=== PATIENT | male | born 1955 | race Caucasian/White ===

== ENCOUNTER → 2019-02-28 | Day surgery (SDC) | payer BC ==
[~2019-02-28] MED LIST: ACET325T9 PO; AMLO10TA8 PO; ATOR10TA60 PO; IV RINGERS,LACTATED 1000ML 1,000 ML IV ONE; LIDOCAINE 2% PF 5 ML VIAL. ONE; PROPOFOL 40 ML IV ONE
--- NOTE | 2019-02-28 14:27 | PDOC4 ---
PROCEDURE Procedure Colonoscopy, snare/biopsy. Indication: H/o polyps. Meds: per anesthesia Findings: ANABELLE-- normal --'Scope advanced to cecum. mucosa normal. Occasional diverticula, sigmoid. 3, 8-10mm polyps, hepatic flexure removed with cold snare. 4, 4-6mm polyps, splenic flexure, biopsied off. Internal hemorrhoids on retroflex. Varinder. well. IMP: Polyps. Diverticulosis Internal hemorrhoids. REC: Await path. Resume home meds, diet. F/u with me in 2 weeks. Pending path, repeat exam in 3-5 years. LORRI WAN MD Feb 28, 2019 14:27
[2019-02-28 14:42] VITALS: BP 132/85
--- NOTE | 2019-03-02 14:06 | PATHOLOGY ---
[facility] Accession Number: [id number] . 01 Material submitted: . PART A: hepatic flexure - HEPATIC FLEXURE POLYP PART B: splenic flexure - SPLENIC FLEXURE POLYPS . 01 Clinical history: . Hx colon polyps . 02 Diagnosis: A. Colon biopsies, hepatic flexure polyps: - Tubular adenomas. . B. Colon biopsies, splenic flexure polyps: - Tubular adenomas. - Hyperplastic polyps. (JPM:marilee; 03/02/2019) QMS 03/02/2019 0934 Local . 02 Comment: Sections of the splenic flexure biopsy reveal six segments of tubular adenoma and a slightly larger number of segments of hyperplastic polyp. There is no high grade dysplasia or evidence of malignancy. . (JPM:marilee; 03/02/2019) . 02 Electronically signed: . Lucio Mcmillan MD, Pathologist NPI- [id number] . 01 Gross description: . A. The specimen is received in formalin, labeled "Ben, Stephan, hepatic flexure polyps" and consists of multiple fragments of pink-aviles tissue measuring 1.7 x 0.9 x 0.4 cm in aggregate which are entirely submitted in A1. . B. The specimen is received in formalin, labeled "Ben, Stephan, splenic flexure polyps" and consists of multiple fragments of soft aviles tissue measuring 1.3 x 0.8 x 0.4 cm in aggregate which are entirely submitted in B1. (SDY; 03/01/2019) SYU/SYU 03/01/2019 1551 Local . 02 Pathologist provided ICD-10: D12.3, K63.5 . 02 CPT . 905657, [id number] Specimen Comment: A courtesy copy of this report has been sent to [phone], [phone] Specimen Comment: [id number] Specimen Comment: Report sent to and Performed at: [address], [place] [id number] MD Timo Cruz MD Phone: [phone] [facility]formed [facility]: [facility] [address] [place], [place] [id number] MD Lucio Mcmillan MD Phone: [phone]
== END ==
LOC: ENDOS 12:34
PROVIDERS: ATTEND Internal Medicine Gastroenterology
DX: Z12.11 Encounter for screening for malignant neoplasm of colon (principal); D12.3 Benign neoplasm of transverse colon; K57.30 Diverticulosis of large intestine without perforation or abscess without bleeding; K64.0 First degree hemorrhoids; I10 Essential (primary) hypertension; E78.00 Pure hypercholesterolemia, unspecified; Z86.010 Personal history of colon polyps; Z85.828 Personal history of other malignant neoplasm of skin
CPT/HCPCS: 45380; 45385; 88305; J2001; J2704

== ENCOUNTER → 2020-11-16 | Outpatient (CLI) | payer MEDICARE ==
[2019-02-28 14:42] VITALS: BP 132/85
[~2020-11-16] MED LIST changes: +AMLO-187 PO; -AMLO10TA8 PO; -IV RINGERS,LACTATED 1000ML 1,000 ML IV ONE; -LIDOCAINE 2% PF 5 ML VIAL. ONE; -PROPOFOL 40 ML IV ONE; +REGADENOSON 0.4 MG/5 ML DISP.SYRIN. IV ONE
--- NOTE | 2020-11-16 13:09 | RAD ---
MR#: [id number] Date of Study: 11/16/2020 Ordering Physician: DENNIS REYES, Referring Physician: CAMERON BUTTERFIELD Tech: NAYA Trevino, ARRT (R) (N) APPROVED REPORT Test Type: Pharmacological Stress Nurse/Tech: DARINEL ALFARO Test Indications: CHEST PAIN Cardiac History: HTN, CHEST PAIN- SEE EMR Medications: SEE EMR Medical History: SEE EMR Resting ECG: SR Resting Heart Rate: 66 bpm Resting Blood Pressure: 121/77mmHg Pretest Chest Pain: No chest pain Nurse/Tech Notes S1,S2, LUNGS CTA, DENIED CHEST PAIN OR SHORTNESS OF BREATH, VSS. Consent: The procedure was explained to the patient in lay terms. Informed consent was witnessed. Lenny eout was entered into [employer]. History and Stress Test performed by Reed Rios, (R) (N) Pharm. Details Pharmacologic stress testing was performed using 0.4mg per 5ml of regadenoson given intravenously ove r 7-10 seconds. Stress Symptoms PT HAD A BRIEF EPISODE OF SHORTNESS OF BREATH DURING THE INITIAL TESTING, RESOLVED QUICKLY. AT THE EN D OF TESTING, PT'S STOMACH GOT UPSET AND VOMITTED A VERY SMALL AMOUNT. PT RETURNED TO BASELINE AFTER A COUPLE OF MINUTES. VSS. DENIED CHEST PAIN. POST EXERCISE Reason for Termination: Infusion complete Max HR: 118 bpm Max Blood Pressure: 150/69mmHg Blood Pressure response to exercise: Normal blood pressure response during stress. Heart Rate response to exercise: WNL Chest Pain: No. Arrhythmia: No. ST Change: No. INTERPRETATION Stress EKG Conclusion: The resting EKG shows a sinus rhythm and the mild nonspecific T wave changes. The stress EKG shows no significant changes from baseline. No EKG evidence of stress-induced ischemia. Imaging Protocol IMAGE PROTOCOL: Rest Tc-99m/stress Tc-99m 1 day Rest: Stress: Viability: Radiopharm.Tc99m LgygpvyfvQf66x Sestamibi Dose10.5mCi 33mCi Img Date 11/16/2020 11/16/2020 Inj-Img Mykt59mwa. 60min. Rest Admin Site:IV - Left AntecubitalAdministrator:SULEIMAN Chakraborty Stress Admin Site: IV - Left AntecubitalAdministrator: Reed Rios, RT (R)(N) STRESS DATA End Diast. Vol.72.0mlLVEDV index BSA34.0ml End Syst. Vol.14.0mlLVESV index BSA7.0ml Myocardial Kwdw536.0gEject. Ljpzmnzr04.0% Stress Scores Regional WT1.00Summed WT5.00 Regional WM0.00Summed WM0.00 LV Perfusion The stress scans show no significant defects. The rest scans showed no significant defects. Nuclear imaging shows no reversible ischemia or infarct. Wall Motion Left ventricular systolic function is normal with no regional wall motion abnormalities and an ejecti on fraction of greater than 70%. LV Perf. Quant 17 Seg. SSS2.00 17 Seg. SRS0.00 17 Seg. SDS2.00 Stress Defect Extent (% LAD)0.00Rest Defect Extent (% LAD)0.00Rev. Defect Extent (% LAD)0.00 Stress Defect Extent (% LCX) 7.50Rest Defect Extent (% LCX)0.00Rev. Defect Extent (% LCX)1.30 Stress Defect Extent (% RCA)0.00Rest Defect Extent (% RCA)0.00Rev. Defect Extent (% RCA)0.00 Stress Defect Extent (% EVELYNE)1.70Rest Defect Extent (% EVELYNE)0.00Rev. Defect Extent (% EVELYNE)0.40 Conclusion 1. No EKG evidence of stress-induced ischemia. 2. Nuclear imaging shows no reversible ischemia or infarct. 3. Intact LV systolic function with an ejection fraction of greater than 70%. 4. Low risk Lexiscan nuclear stress test. Signed by : Dennis Reyes MD Electronically Approved : 11/16/2020 13:09:35
== END ==
LOC: NM 08:59
PROVIDERS: ATTEND Internal Medicine Cardiovascular Disease
DX: R07.9 Chest pain, unspecified (principal)
CPT/HCPCS: 78452; 93017; A9500; J2785

== ENCOUNTER → 2021-01-30 | Outpatient (CLI) | payer MEDICARE ==
[2019-02-28 14:42] VITALS: BP 132/85
[~2021-01-30] MED LIST changes: -REGADENOSON 0.4 MG/5 ML DISP.SYRIN. IV ONE
--- NOTE | 2021-01-30 16:19 | RAD ---
EXAM: XR CHEST 2V 01/30/2021 9:44 AM CLINICAL INDICATION: Smoker, screening for lung tumor. COPD. COMPARISON: None available TECHNIQUE: PA and lateral views of the chest FINDINGS: The heart is normal in size. Lungs are adequately expanded. There is a 7 mm pulmonary nodu le in the anterior chest on lateral view only, likely a calcified granuloma. No consolidation, pleura l effusion, or pneumothorax. No pulmonary edema. There is thoracolumbar scoliosis and degenerative di sc disease. [employer]CTION[employer] shunt catheter tubing is seen in the right neck, chest, and abdomen. There are probabl e calcified splenic granulomas. IMPRESSION: 7 mm pulmonary nodule in the anterior chest seen on lateral view, likely a calcified gra nuloma. This could be confirmed by CT of the chest. Electronically signed by: Gayatri Dobbins MD (01/30/2021 4:17 PM) [id number]
== END ==
LOC: RAD 09:28
PROVIDERS: ATTEND Internal Medicine
DX: R91.1 Solitary pulmonary nodule (principal); J44.9 Chronic obstructive pulmonary disease, unspecified; M41.85 Other forms of scoliosis, thoracolumbar region; M51.35 Other intervertebral disc degeneration, thoracolumbar region; F17.210 Nicotine dependence, cigarettes, uncomplicated
CPT/HCPCS: 71046

== ENCOUNTER → 2021-02-08 | Outpatient (CLI) | payer MEDICARE ==
[2019-02-28 14:42] VITALS: BP 132/85
--- NOTE | 2021-02-08 17:04 | RAD ---
EXAM: CT Chest without IV contrast CLINICAL HISTORY: LUNG NODULE COMPARISON: 01/30/2021 TECHNIQUE: CT of the chest without intravenous contrast. Axial, coronal and sagittal reformatted imag es were generated. ---PQRS compliance statement - One or more of the following individualized dose reduction techniques were utilized for this study: 1. Automated exposure control 2. Adjustment of the mA and/or kV according to patient size 3. Use of iterative reconstruction technique--- FINDINGS: Lack of intravenous contrast limits evaluation of solid organs, vasculature, and lymph nodes. Chest: No mediastinal or hilar lymphadenopathy. No axillary lymphadenopathy. Calcified mediastinal and hilar lymph nodes. Heart is not enlarged. No pericardial effusion. Coronary calcifications are seen. Ascending aorta bradly sures 4.2 cm at the level of the right pulmonary artery. Linear opacity lingula likely scarring/atelectasis. 7 mm left lower lobe lung nodule seen. Calcified granuloma right upper lobe. Shunt tubing is seen overlying the right chest. Visualized Upper abdomen: Nonobstructing renal calculus right upper pole. Left upper pole renal cyst. Bones: Trace height loss of L1 vertebral body, stable to 08/07/2012. IMPRESSION: 1. The nodule seen on prior chest radiograph corresponds to a calcified granuloma in the anterior ri ght upper lobe. 2. 7 mm left lower lobe lung nodule. Per Fleischner Society guidelines for incidentally found solid nodule measuring 6-8 mm, initial CT follow-up is recommended in 6-12 months. Additional follow-up can be considered in 18-24 month based on risk factors. 3. Mild dilation ascending aorta measuring 4.2 cm. Electronically signed by: Lito Tay MD (02/08/2021 5:02 PM) [id number]
== END ==
LOC: CT 12:02
PROVIDERS: ATTEND Internal Medicine
DX: R91.1 Solitary pulmonary nodule (principal); J84.10 Pulmonary fibrosis, unspecified; I25.10 Atherosclerotic heart disease of native coronary artery without angina pectoris; R59.0 Localized enlarged lymph nodes; N20.0 Calculus of kidney; N28.1 Cyst of kidney, acquired
CPT/HCPCS: 71250